=== PATIENT | male | born 1950 | race Caucasian/White ===

== ENCOUNTER 2025-03-04 14:34 | Emergency (ER) | payer MEDICARE, OTHER ==
[2025-03-04] MEDS ORDERED: Sodium Chloride 0.9% 2.5 ML Syringe FLUSH PRN (15:45)
[2025-03-04] MEDS ORDERED: Sodium Chloride 0.9% 10 ML Syringe FLUSH PRN (15:45)
[2025-03-04] MEDS: methylPREDNISolone Sodium Succinate 125 MG/2 ML SDV IVPUSH ONE (16:03)
[2025-03-04 16:04] LABS: BASOPHILS ABSOLUTE AUTO 0.04 K/uL (0.00-0.20); BASOPHILS PERCENT AUTO 0.4 % (0.0-1.0); EOSINOPHILS ABSOLUTE AUTO 0.09 K/uL (0.00-0.45); EOSINOPHILS PERCENT AUTO 1.0 % (0.0-6.0); IMMATURE GRAN ABSOLUTE AUTO 0.02 K/uL (0.00-0.05); IMMATURE GRAN PERCENT AUTO 0.2 % (0.0-0.4); LYMPHOCYTES ABSOLUTE AUTO 2.22 K/uL (1.00-4.80); LYMPHOCYTES PERCENT AUTO 24.9 % (24.0-44.0); MEAN PLATELET VOLUME 9.0 fL (9.4-12.4); MONOCYTES ABSOLUTE AUTO 0.71 K/uL (0.00-0.80); MONOCYTES PERCENT AUTO 8.0 % (0.0-8.0); NEUTROPHILS ABSOLUTE AUTO 5.83 K/uL (1.80-7.70); NEUTROPHILS PERCENT AUTO 65.5 % (41.0-71.0); NRBC ABSOLUTE 0.00 K/uL (0.00-0.02); NRBC PERCENT 0.0 /100WBC (0.0-0.2); PLATELET COUNT,PLT 308 K/uL (150-400); RED BLOOD CELL COUNT 4.92 M/uL (4.52-5.90); WHITE BLOOD CELL COUNT,WBC 8.91 K/uL (3.9-11.3)
[2025-03-04 16:29] LABS: A/G RATIO 0.7 (0.9-1.6); ALANINE AMINOTRANSFERASE,ALT 20.0 IU/L (14-63); ASPARTATE AMNIOTRANSFERASE,AST 18.0 IU/L (15-37); BILIRUBIN TOTAL 0.4 mg/dL (0.2-1.0); BLOOD UREA NITROGEN,BUN 15.0 mg/dL (7.0-18.0); CARBON DIOXIDE,CO2 29.2 mmol/L (21.0-32.0); CHLORIDE,CL 103.0 mmol/L (98-107); CREATININE 0.7 mg/dL (0.8-1.3); EST CRCL DRUG DOSING (CG) 98.61 mL/min; ESTIMATED GFR 97.0 mL/min (>60); GLUCOSE RANDOM 93.0 mg/dL (74-106); POTASSIUM,K 3.9 mmol/L (3.5-5.1); PRO B-TYPE NATRIUR PEPT,BNPPRO 182.0 pg/mL (0-125); PROTEIN TOTAL,TP 7.4 g/dL (6.4-8.2); SODIUM,NA 142.0 mmol/L (136-148)
[2025-03-04] MEDS: Iopamidol 755 MG/ML 500 ML Multipack Bottle IVPUSH STA (17:08)
== END 2025-03-04 21:13 | disposition left against medical advice (07) ==
LOC: MW.ED 14:34
DX: J44.1 Chronic obstructive pulmonary disease with (acute) exacerbation (principal); J44.0 Chronic obstructive pulmonary disease with (acute) lower respiratory infection; J18.9 Pneumonia, unspecified organism; F17.210 Nicotine dependence, cigarettes, uncomplicated; R79.89 Other specified abnormal findings of blood chemistry; Z90.49 Acquired absence of other specified parts of digestive tract; Z88.0 Allergy status to penicillin; Z79.899 Other long term (current) drug therapy
CPT/HCPCS: 36415; 71046; 71275; 80053; 83735; 83880; 84484; 85025; 85379; 87428; 93005; 94640; 96374; 99285; A9270; J2919; Q9967; 99284